=== PATIENT | female | born 1940 | race Caucasian/White ===

== ENCOUNTER 2016-09-23 15:42 | Inpatient (IN) | payer MEDICARE, BC ==
[~2016-09-23] VITALS: Ht 167.6 cm; Wt 84.5 kg
[2016-09-27] MEDS ORDERED: MICRO-K DPS10 MEQ PO (20:15)
[2016-09-27] MEDS ORDERED: SYNTHROID DPS0.1 MG PO (20:15)
[2016-09-27] MEDS ORDERED: ZYLOPRIM-DPS100 MG PO (20:15)
[2016-09-27] MEDS ORDERED: ANTIVERT-DPS25 MG PO (20:15)
[2016-09-27] MEDS ORDERED: TENORETIC-50 DP1 TAB PO (20:16)
[2016-09-27] MEDS ORDERED: MAALOX DPS30 ML PO (20:16)
[2016-09-27] MEDS ORDERED: LEVAQUIN DPS500 MG PO (20:16)
[2016-09-27] MEDS ORDERED: COLACE-DPS100 MG PO (20:16)
[2016-09-27] MEDS ORDERED: TYLENOL DPS325 MG PO (20:17)
--- NOTE | 2016-10-27 13:34 | HP ---
ADMIT: 09/23/2016 RM/LOC: [address] [facility] MR#: [id number] [facility]#: [id number] [address] [address] JACEK HILLIARD [address] [place] [address] History and Physical SEX: F AGE: 75 : 1940 DATE OF SERVICE: CHIEF COMPLAINT: Back pain. CLINICAL HISTORY: Ferdinand came in to see us yesterday with waves of nausea and episodes of vertigo. At that time, she did not have any back pain, had had symptoms previously a week or two before of dysuria intermittently. There was no blood in the urine or other symptomatology. Her white count per evaluation, kidney function studies were all normal, and she was given Antivert and set up for an ultrasound of the gallbladder. All of these were normal. She responded to her Antivert, and her vertigo and nausea essentially went away. Unfortunately, she started having early this morning back pain, which she describes as low back in the L5 region radiating across bilaterally. She really does not have any dysuria however. Last night, she had a low-grade fever. Today, she has the same, temperature of 100.6. PAST MEDICAL HISTORY: Includes a history of prior nephrolithiasis, but no history of any kidney stones in the past. ILLNESSES: Mild hypertension and mild degenerative arthritis. SOCIAL HISTORY: She is a . ALLERGIES: PERCOCET. REVIEW OF SYSTEMS: She denies any real chills, rigors, or anything, and was a little surprised that she was running a fever. Her vertigo has resolved. Her nausea has resolved. Her ultrasound was normal. She denies any other specific history of back injury, but has had episodes of low back pain in the past. She denies any cardiovascular, GI, or other symptoms. PHYSICAL EXAMINATION: GENERAL: Examination showed a white female with a blood pressure 118/62, pulse rate is 80 and regular. HEAD AND NECK: Unremarkable. LUNGS: Clear. HEART: Without findings. ABDOMEN: Benign with no significant findings whatsoever. MUSCULOSKELETAL: Examination of the back shows tenderness over the SI joint bilaterally, occasional muscle spasms. EXTREMITIES: Unremarkable without weakness and neurologic there were no signs or symptoms. LABORATORY DATA: Repeat CBC shows a slight increase in her white count of 12,000. Urinalysis shows trace of blood. IMPRESSION: 1. Back pain. New onset. 2. Low-grade fever. ADMIT: 09/23/2016 RM/LOC: 6[address] [facility] MR#: [id number] [address] [address] JACEK HILLIARD [address] [place] [address] History and Physical SEX: F AGE: 75 : 1940 3. Microscopic hematuria. 4. History of nephrolithiasis. 5. History of hypertension. 6. History of degenerative arthritis lumbosacral spine and knees bilaterally. PLAN: 1. Renal CT, rule out kidney stone. 2. Cultures and diagnostic laboratory. 3. Antibiotic coverage for low-grade fever, pending culture report. She does not look septic to me, and walked into the office under own volition. Kyle Yeager MD/ steven JOB #: [id number] CC: Kyle Yeager, Attending Physician Kyle Yeager, Family Physician
--- NOTE | 2016-12-15 11:01 | DS ---
ADMIT: 09/23/2016 RM/LOC: 621 [facility] MR#: [id number] [address] [address] JACEK HILLIARD [id number] [address] [place] [address] Discharge Summary SEX: F AGE: 75 : 1940 ADMISSION DATE: 09/23/2016 DISCHARGE DATE: 09/26/2016 DISMISSAL DIAGNOSES: 1. Urinary tract infection. 2. Low back pain. 3. Degenerative arthritis lumbosacral spine. 4. Left kidney exophytic cyst probably benign. 5. Retained metallic fragment post hysterectomy and bladder suspension in 2013. 6. Extensive degenerative arthritis lumbosacral spine. 7. Microscopic hematuria without vasculitis. CLINICAL HISTORY: Feridnand Hilliard was admitted with nausea, mild dehydration, partially treated urinary tract infection, and severe low back pain. She could not get out of the wheelchair, was admitted to the hospital and evaluation undertaken showing a urinary tract infection treated, microscopic hematuria, a left renal cyst but no evidence of systemic vasculitis. CT scan of the abdomen and pelvis because of her intractable and it is somewhat atypical pain showed extensive arthritis but no intraabdominal abnormalities. Complement levels were undertaken because of the presence of microscopic hematuria and her severe back pain as well as some atypical symptoms but these were negative. Her back pain improved considerably after continued antibiotic and analgesia as well as heating pad, and we found no evidence of disc rupture, etc. An MRI could not be undertaken due to retained metallic fragment from a prior hysterectomy and bladder suspension from 2013. Ultimately, she was dismissed home markedly improved with admonishing to not do any lifting, bending, stooping of significance and to follow up in the office. Incidental nephrolithiasis was seen and followup ultrasound will be scheduled in six months per Radiology recommendation. She will be continued on Levaquin 500 mg daily for six additional days. Antivert and her usual blood pressure medicines, potassium and thyroid were her take-home medications. Kyle Yeager MD/ steven JOB #: [id number] CC: Kyle Yeager MD, Attending Physician Kyle Yeager MD, Family Physician
== END 2016-09-26 11:45 | disposition home or self-care (01) | DRG 699 ==
LOC: 6PED 15:42
PROVIDERS: ADMIT Internal Medicine
DX: N28.1 Cyst of kidney, acquired (principal); N39.0 Urinary tract infection, site not specified; R31.29 Other microscopic hematuria; I10 Essential (primary) hypertension; M54.9 Dorsalgia, unspecified; M47.9 Spondylosis, unspecified; M17.0 Bilateral primary osteoarthritis of knee; N20.0 Calculus of kidney

== ENCOUNTER → 2016-09-23 | Outpatient (CLI) | payer MEDICARE, BC ==
[~2016-09-23] MED LIST: ANTIVERT-DPS25 MG PO; COLACE-DPS100 MG PO; LEVAQUIN DPS500 MG PO; MAALOX DPS30 ML PO; MICRO-K DPS10 MEQ PO; SYNTHROID DPS0.1 MG PO; TENORETIC-50 DP1 TAB PO; TYLENOL DPS325 MG PO; ZYLOPRIM-DPS100 MG PO
== END | disposition home or self-care (01) ==
LOC: RAD.S 13:22
DX: R10.9 Unspecified abdominal pain (principal); R11.2 Nausea with vomiting, unspecified